=== PATIENT | male | born 1970 | race Caucasian/White ===

== ENCOUNTER → 2017-08-24 | Day surgery (SDC) | payer OTHER ==
[~2017-08-24] MED LIST: ASPI81 PO; BUPIVACAINE HCL PF 0.75% 30 ML VIAL ONE; EPINEPHrine HCL (1:1000) 30 MG/30 ML VIAL ONE; LACTATED RINGER'S 1000 ML INJ 1,000 ML ONE; LIDOCAINE 1.5%/EPINEPHrine 1:200,000 PF SOLN 30 ML AMP ONE; MAGN400C2 PO; MIDAZOLAM HCL 5 MG/ML VIAL (1 ML) ONE; PROPOFOL 200 MG/20 ML AMP IV ONE; SYMBICORT INH; ceFAZolin 2 GM PREMIX 50 ML ONE
--- NOTE | 2017-08-24 12:17 | MP ---
cc: SARAHY GRANGER DATE OF SURGERY: 08/24/2017 PREOPERATIVE DIAGNOSIS Left shoulder rotator cuff tear. Left shoulder impingement syndrome. Left shoulder labral tear. POSTOPERATIVE DIAGNOSES Left shoulder rotator cuff tear. Left shoulder impingement syndrome. Left shoulder labral tear. PROCEDURE Left shoulder arthroscopic rotator cuff repair. Left shoulder arthroscopic subacromial decompression. Left shoulder arthroscopic extensive debridement, labral tear. SURGEON Dr. Sarahy Granger. [employer] MACHINE OPERATOR Sarahy Leon PA-C. ANESTHESIA General with an interscalene block. ESTIMATED BLOOD LOSS Less 10 cc. COMPLICATIONS None. IMPLANTS Arthrex. JUSTIFICATION This patient is a 47-year male who injured his left shoulder while lifting heavy weights. He has had persistent symptoms of pain in spite of conservative treatment. He was evaluated by the undersigned in the [facility]. Clinical exam confirmed the above-named findings. The patient was counseled as to the risks, benefits and alternatives to the above-named proposed surgical procedure. He did wish to proceed with surgery. PROCEDURE IN DETAIL Written consent was obtained. The patient was identified by name, taken to the operating room and placed supine on the operating table. General anesthesia was administered as well as 2 grams of IV Ancef. He did receive a preoperative interscalene block. The patient was carefully turned into a right lateral decubitus position. A lateral arm roll was placed. All bony prominences and pressure points were well-padded. An arthroscopic arm malone was gently applied to the left upper extremity with 10 pounds of traction placed. The left shoulder was prepped and draped using isopropyl alcohol, Hibiclens solution and DuraPrep solution. After a timeout was performed standard posterior and anterior glenohumeral arthroscopic portals were established. There was evidence of labral tearing along the anterior, superior and also the posterior labral. Most of the tearing was type I tearing with degenerative changes and fraying along the insertion to the glenoid. An arthroscopic shaver was introduced from the anterior portal and extensive debridement of the labrum was performed from the anterior 3 o'clock position up to the superior 12 o'clock position and back to the posterior 9 o'clock position. I carefully probed the labrum and there was good stability after debridement. The biceps origin was intact. No significant chondromalacia of the glenohumeral joint was noted. Attention was turned to the subacromial space where there was evidence of significant impingement and also severe bursitis throughout the subacromial space. An arthroscopic shaver was introduced from the lateral portal. A subacromial decompression was performed. The shaver was used to perform extensive bursectomy. The arthroscopic bur was used to perform an acromioplasty and the cautery device was used to release the coracoacromial ligament. There was evidence of a full-thickness rotator cuff tendon tear along the superior and posterior portion of the supraspinatus tendon. A bur was used to decorticate the greater tuberosity in preparation for rotator cuff tendon repair. An Arthrex Scorpion device was used to shuttle number #2 FiberTape suture through the anterior and posterior portions of the torn tendon. The sutures were then placed through the eyelet of an Arthrex 4.75 mm Bio-SwiveLock anchor. The sutures were tensioned. The anchor was inserted in the greater tuberosity. There was good purchase and fixation after insertion of the anchor and the rotator cuff tendon repair was probed after repair with good stability. At the conclusion of the surgical procedure the arthroscopic portals were closed with 3-0 Prolene sutures, sterile dressings were applied. The patient was placed in sling and swathe immobilizer. He tolerated the procedure well with no intraoperative complications noted. Sarahy Leon, physician human resource assistant certified, was present during the procedure to include patient positioning and the procedure itself. The medical necessity of the physician human resource assistant was indicated in this case due to the complexity of the procedure. He assisted with appropriate manipulation of the arm and also manipulation of the camera. He assisted with shuttling of sutures and also implantation of suture anchor for purposes of rotator cuff tendon repair. Sarahy Granger MD JWM/ROSANA /11:22 AM /11:56 AM
== END | disposition home or self-care (01) ==
LOC: ESDC 08:22
PROVIDERS: ATTEND Orthopaedic Surgery Sports Medicine
DX: M75.122 Complete rotator cuff tear or rupture of left shoulder, not specified as traumatic (principal); M75.42 Impingement syndrome of left shoulder; S43.402A Unspecified sprain of left shoulder joint, initial encounter
CPT/HCPCS: 01630; 01991; 29823; 29826; 29827; 64417; C1713; J0690; J2250; J7120; J0171